=== PATIENT | female | born 1955 | race Caucasian/White ===

== ENCOUNTER 2017-02-21 18:04 | Inpatient (IN) | payer OTHER ==
[~2017-02-21] VITALS: Ht 160 cm; Wt 57.7 kg
--- NOTE | ~2017-02-21 | CON ---
[place], [place] REPORT OF CONSULTATION NAME: ELLYN FARMER UNIT #: [id number] ROOM: [place] [address] DOCTOR: MARILIN JOHN ED.D) BIRTHDATE: [birth year] DOS: 02/23/2017 HISTORY OF PRESENT ILLNESS: The patient is a 61-year-old female referred by the hospitalist for an evaluation of her obsessive compulsive disorder and depression. At the present time, this patient is a [facility] patient at [facility] and she is in the intensive care unit at the hospital. This patient states that she is a and has three children. She is on disability for multiple orthopedic issues. She does follow with Dr. Luther, in [place], [place]. Her medical history is pertinent for alcohol dependence and heroin dependence. Her medications include the regimen for withdrawal from alcohol and heroin. This patient states she drinks one fifth of vodka per day and also uses heroin and opiates. This patient also smokes 1 pack of cigarettes per day. She was awake, alert and oriented in all 3 spheres, but was extremely anxious and depressed. She denies any suicidal ideation or plan. She is going to follow up at [facility] for the intensive outpatient clinic. In the past, she has been to [facility] here in [place]. She states she came to the hospital to be detoxed and then follow up outpatient. She was obviously going through withdrawal during the interview even though she is taking multiple medications to ease the symptoms of her withdrawal. She does not appear to actually have obsessive compulsive disorder, but appears to be extremely anxious due to her withdrawal from alcohol and heroin. She had agreed to follow up outpatient once she is discharged. DIAGNOSES: 1. Alcohol dependence. 2. Alcohol withdrawal. 3. Opioid dependence. 4. Opioid withdrawal. RECOMMENDATIONS: 1. The patient should follow up at [facility] per her request once she is discharged. 2. The patient should follow up at long-term outpatient therapy for her substance abuse issues. 3. She should be reevaluated for depression once she is medically stable and detoxed. Thank you very much for this consult. [place], [place] REPORT OF CONSULTATION NAME: ELLYN FARMER UNIT #: [id number] ROOM: [place] [address] DOCTOR: MARILIN JOHN ED.D) BIRTHDATE: [birth year] MARILIN JOHN ED.D CM:CONSTR:REPORT OF CONSULTATION [id number] 02/24/17 0525 interface
[2017-02-21 18:07] VITALS: BP 171/96
[2017-02-21] MEDS ORDERED: CHLORDIAZEPOXID25 M1 PO (18:08)
[2017-02-21] MEDS ORDERED: ONDANSETRON HYDR4 MG PO (18:08)
[2017-02-21] MEDS ORDERED: Methadone Hydro10 MG PO (18:09)
[2017-02-21] MEDS ORDERED: OXYCODONE HCL10 M1 PO (18:12)
[2017-02-21 18:33] LABS: BASO # 0.1 10*3/uL (0.0-0.1); BASO % 0.3 % (0.0-1.0); EOS # 0.1 10*3/uL (0.0-0.4); EOS % 0.3 % (1.0-4.0); HEMATOCRIT 43.9 % (37.0-47.0); HEMOGLOBIN 14.8 g/dl (12.0-16.0); IG # 0.1 10*3/uL (0.0-0.1); LYMPH # 1.7 10*3/uL (1.3-4.4); LYMPH % 9.9 % (27.0-41.0); MEAN CELL VOLUME 98.4 fl (81.0-99.0); MEAN CORPUSCULAR HGB 33.2 pg (27.0-31.0); MEAN CORPUSCULAR HGB CONC 33.7 g/dl (33.0-37.0); MEAN PLATELET VOLUME 9.3 fl (9.6-12.3); MONO # 1.3 10*3/uL (0.1-1.0); MONO % 7.4 % (3.0-9.0); NEUT # 14.2 10*3/uL (2.3-7.9); NEUT % 81.8 % (47.0-73.0); PLATELET COUNT AUTOMATED 469 10*3/uL (130-400); RED BLOOD COUNT 4.46 10*6/uL (4.10-5.10); RED CELL DISTRI WIDTH 13.4 % (0-14.5); WHITE BLOOD COUNT 17.3 10*3/uL (4.8-10.8)
[2017-02-21 18:50] LABS: ALBUMIN 3.6 gm/dl (3.1-4.5); ALKALINE PHOSPHATASE 197 U/L (45-117); BILIRUBIN, TOTAL 0.4 mg/dl (0.2-1.0); BUN 4 mg/dl (7-24); CARBON DIOXIDE 28 mmol/L (21-32); CHLORIDE 102 mmol/L (98-107); EST GLOM FILT AFRICAN AMERICAN > 60 ml/min; GLUCOSE 139 mg/dL (65-99); POTASSIUM 3.7 mmol/L (3.5-5.1); SGOT/AST 22 IU/L (3-35); SGPT/ALT 32 U/L (12-78); SODIUM 140 mmol/L (136-145); TOTAL PROTEIN 8.2 gm/dL (6.4-8.2)
[2017-02-21 18:57] LABS: THYROID STIM HORMONE (HS) 0.033 uIU/ml (0.358-4.75); TROPONIN I < 0.015 ng/ml (<0.045)
[2017-02-21 19:45] VITALS: BP 145/105
[2017-02-21 19:59] VITALS: BP 136/71
[2017-02-21 20:02] LABS: BILIRUBIN NEGATIVE (NEGATIVE); BLOOD TRACE-INTACT (NEGATIVE); CLARITY CLEAR (CLEAR); COLOR YELLOW (YELLOW); GLUCOSE NEGATIVE (NEGATIVE); KETONE NEGATIVE (NEGATIVE); LEUKO ESTERASE NEGATIVE (NEGATIVE); NITRITE NEGATIVE (NEGATIVE); PH 5.5 (5.0-9.0); PROTEIN NEGATIVE (NEGATIVE); SPECIFIC GRAVITY <= 1.005 (1.005-1.030); UROBILINOGEN 0.2 E.U./dl (0.2-1.0)
[2017-02-21 20:10] VITALS: BP 137/81
[2017-02-21 20:13] LABS: URINE AMPHETAMINES < 1000 (1000ng/ml); URINE BARBITURATES > 200 (200ng/ml); URINE COCAINE < 300 (300ng/ml)
[2017-02-21 20:15] LABS: EPITHELIAL CELLS 0-2; URINE REFLEX COMMENT NO (NO); WBC 0-2 wbc/hpf (0-5)
[2017-02-21 21:45] LABS: CKMB 1.6 ng/ml (0.5-3.6); CPK 89 U/L (26-192)
[2017-02-21 21:56] LABS: TROPONIN I < 0.015 ng/ml (<0.045)
[2017-02-22] VITALS: BP 148/81
[2017-02-22 01:31] LABS: CKMB 0.9 ng/ml (0.5-3.6); CPK 71 U/L (26-192); TROPONIN I < 0.015 ng/ml (<0.045)
[2017-02-22 06:12] LABS: BASO % 0.3 % (0.0-1.0); EOS # 0.1 10*3/uL (0.0-0.4); EOS % 0.7 % (1.0-4.0); HEMATOCRIT 40.9 % (37.0-47.0); HEMOGLOBIN 13.5 g/dl (12.0-16.0); IG # 0.1 10*3/uL (0.0-0.1); LYMPH # 1.7 10*3/uL (1.3-4.4); LYMPH % 11.6 % (27.0-41.0); MEAN CELL VOLUME 99.3 fl (81.0-99.0); MEAN CORPUSCULAR HGB 32.8 pg (27.0-31.0); MEAN PLATELET VOLUME 9.5 fl (9.6-12.3); MONO # 1.1 10*3/uL (0.1-1.0); MONO % 7.5 % (3.0-9.0); NEUT # 11.9 10*3/uL (2.3-7.9); NEUT % 79.5 % (47.0-73.0); PLATELET COUNT AUTOMATED 380 10*3/uL (130-400); RED BLOOD COUNT 4.12 10*6/uL (4.10-5.10); RED CELL DISTRI WIDTH 13.4 % (0-14.5)
[2017-02-22 06:29] LABS: PROTHROMBIN TIME 10.3 SECONDS (9.0-12.4)
[2017-02-22 06:31] LABS: ALBUMIN 2.8 gm/dl (3.1-4.5); ALKALINE PHOSPHATASE 156 U/L (45-117); BILIRUBIN, TOTAL 0.5 mg/dl (0.2-1.0); BUN 4 mg/dl (7-24); CARBON DIOXIDE 30 mmol/L (21-32); CHLORIDE 106 mmol/L (98-107); CKMB 0.6 ng/ml (0.5-3.6); CPK 58 U/L (26-192); EST GLOM FILT AFRICAN AMERICAN > 60 ml/min; GLUCOSE 97 mg/dL (65-99); POTASSIUM 3.7 mmol/L (3.5-5.1); SGOT/AST 14 IU/L (3-35); SGPT/ALT 24 U/L (12-78); SODIUM 142 mmol/L (136-145); TOTAL PROTEIN 6.7 gm/dL (6.4-8.2)
[2017-02-22 06:34] LABS: TROPONIN I < 0.015 ng/ml (<0.045)
[2017-02-22 08:00] VITALS: BP 107/81
[2017-02-22 12:00] VITALS: BP 110/88
[2017-02-22 16:00] VITALS: BP 116/83
[2017-02-22 20:00] VITALS: BP 125/93
[2017-02-23] VITALS: BP 101/51
[2017-02-23 04:00] VITALS: BP 122/68
[2017-02-23 06:06] LABS: BASO % 0.1 % (0.0-1.0); HEMATOCRIT 37.7 % (37.0-47.0); HEMOGLOBIN 12.1 g/dl (12.0-16.0); IG # 0.1 10*3/uL (0.0-0.1); LYMPH # 0.9 10*3/uL (1.3-4.4); LYMPH % 8.3 % (27.0-41.0); MEAN CORPUSCULAR HGB CONC 32.1 g/dl (33.0-37.0); MEAN PLATELET VOLUME 9.6 fl (9.6-12.3); MONO # 0.6 10*3/uL (0.1-1.0); NEUT # 9.7 10*3/uL (2.3-7.9); NEUT % 85.9 % (47.0-73.0); PLATELET COUNT AUTOMATED 366 10*3/uL (130-400); RED BLOOD COUNT 3.67 10*6/uL (4.10-5.10); RED CELL DISTRI WIDTH 13.2 % (0-14.5); WHITE BLOOD COUNT 11.3 10*3/uL (4.8-10.8)
[2017-02-23 06:10] LABS: MEAN CELL VOLUME 102.7 fl (81.0-99.0)
[2017-02-23 06:17] LABS: BUN 9 mg/dl (7-24); CARBON DIOXIDE 28 mmol/L (21-32); CHLORIDE 110 mmol/L (98-107); EST GLOM FILT AFRICAN AMERICAN > 60 ml/min; GLUCOSE 225 mg/dL (65-99); POTASSIUM 3.8 mmol/L (3.5-5.1); SODIUM 142 mmol/L (136-145)
[2017-02-23 08:00] VITALS: BP 117/87
[2017-02-23 12:00] VITALS: BP 123/87
[2017-02-23 16:00] VITALS: BP 132/80
[2017-02-23 20:00] VITALS: BP 167/71
[2017-02-24] VITALS: BP 136/84
[2017-02-24 04:00] VITALS: BP 120/79
[2017-02-24 05:57] LABS: ALBUMIN 2.9 gm/dl (3.1-4.5); ALKALINE PHOSPHATASE 133 U/L (45-117); BILIRUBIN, TOTAL 0.1 mg/dl (0.2-1.0); BUN 6 mg/dl (7-24); CARBON DIOXIDE 27 mmol/L (21-32); CHLORIDE 113 mmol/L (98-107); EST GLOM FILT AFRICAN AMERICAN > 60 ml/min; GLUCOSE 168 mg/dL (65-99); SGOT/AST 9 IU/L (3-35); SGPT/ALT 21 U/L (12-78); SODIUM 146 mmol/L (136-145); TOTAL PROTEIN 6.6 gm/dL (6.4-8.2)
[2017-02-24 06:00] LABS: BASO % 0.2 % (0.0-1.0); HEMATOCRIT 37.9 % (37.0-47.0); HEMOGLOBIN 12.2 g/dl (12.0-16.0); IG # 0.1 10*3/uL (0.0-0.1); LYMPH # 1.3 10*3/uL (1.3-4.4); MEAN CELL VOLUME 102.7 fl (81.0-99.0); MEAN CORPUSCULAR HGB 33.1 pg (27.0-31.0); MEAN CORPUSCULAR HGB CONC 32.2 g/dl (33.0-37.0); MEAN PLATELET VOLUME 9.8 fl (9.6-12.3); MONO # 0.4 10*3/uL (0.1-1.0); MONO % 3.1 % (3.0-9.0); NEUT # 11.1 10*3/uL (2.3-7.9); NEUT % 86.2 % (47.0-73.0); PLATELET COUNT AUTOMATED 344 10*3/uL (130-400); RED BLOOD COUNT 3.69 10*6/uL (4.10-5.10); RED CELL DISTRI WIDTH 13.4 % (0-14.5); WHITE BLOOD COUNT 12.8 10*3/uL (4.8-10.8)
[2017-02-24 06:41] LABS: POTASSIUM 4.8 mmol/L (3.5-5.1)
[2017-02-24 08:00] VITALS: BP 115/79
[2017-02-24 12:00] VITALS: BP 132/75
[2017-02-24 16:00] VITALS: BP 123/85
[2017-02-24 20:00] VITALS: BP 141/92
[2017-02-25] VITALS: BP 139/79
[2017-02-25 04:00] VITALS: BP 107/70
[2017-02-25 05:31] LABS: BUN 11 mg/dl (7-24); CARBON DIOXIDE 27 mmol/L (21-32); CHLORIDE 112 mmol/L (98-107); EST GLOM FILT AFRICAN AMERICAN > 60 ml/min; GLUCOSE 162 mg/dL (65-99); POTASSIUM 3.9 mmol/L (3.5-5.1); SODIUM 146 mmol/L (136-145)
[2017-02-25 06:04] LABS: BASO % 0.2 % (0.0-1.0); EOS % 0.1 % (1.0-4.0); HEMATOCRIT 38.6 % (37.0-47.0); HEMOGLOBIN 12.6 g/dl (12.0-16.0); IG # 0.2 10*3/uL (0.0-0.1); LYMPH # 1.5 10*3/uL (1.3-4.4); LYMPH % 13.9 % (27.0-41.0); MEAN CELL VOLUME 101.3 fl (81.0-99.0); MEAN CORPUSCULAR HGB 33.1 pg (27.0-31.0); MEAN CORPUSCULAR HGB CONC 32.6 g/dl (33.0-37.0); MEAN PLATELET VOLUME 9.8 fl (9.6-12.3); MONO # 0.5 10*3/uL (0.1-1.0); NEUT # 8.3 10*3/uL (2.3-7.9); NEUT % 79.3 % (47.0-73.0); PLATELET COUNT AUTOMATED 358 10*3/uL (130-400); RED BLOOD COUNT 3.81 10*6/uL (4.10-5.10); RED CELL DISTRI WIDTH 13.3 % (0-14.5); WHITE BLOOD COUNT 10.5 10*3/uL (4.8-10.8)
[2017-02-25 08:00] VITALS: BP 126/72
[2017-02-25 12:00] VITALS: BP 155/65
[2017-02-25 16:00] VITALS: BP 125/68
[2017-02-25 20:00] VITALS: BP 128/81
[2017-02-26] VITALS: BP 142/82
[2017-02-26 06:50] LABS: BUN 10 mg/dl (7-24); CARBON DIOXIDE 26 mmol/L (21-32); CHLORIDE 109 mmol/L (98-107); EST GLOM FILT AFRICAN AMERICAN > 60 ml/min; GLUCOSE 154 mg/dL (65-99); POTASSIUM 3.9 mmol/L (3.5-5.1); SODIUM 145 mmol/L (136-145)
[2017-02-26 08:00] VITALS: BP 101/85
[2017-02-26] MEDS ORDERED: ATARAX,VISTARIL50 MG PO (11:16)
[2017-02-26] MEDS ORDERED: PREDNISONE10 MG PO (11:16)
[2017-02-26] MEDS ORDERED: LEVAQUIN500 M2 PO (11:16)
[2017-02-26] MEDS ORDERED: LOPERAMIDE HCL2 MG PO (11:19)
[2017-02-26] MEDS ORDERED: TESSALON PERLE100 MG PO (11:37)
[2017-02-26 12:00] VITALS: BP 110/75
== END 2017-02-26 15:30 | disposition home or self-care (01) | DRG 871 ==
LOC: ED 18:04 → ICCU 19:12 → EDHOLD 19:12 → ICCU 19:49 → 5E 02-25 14:11
PROVIDERS: Internal Medicine; Internal Medicine Hospice and Palliative Medicine; Nurse Practitioner Family; Student in an Organized Health Care Education/Training Program
DX: A41.9 Sepsis, unspecified organism (principal); J18.9 Pneumonia, unspecified organism; F10.231 Alcohol dependence with withdrawal delirium; E44.0 Moderate protein-calorie malnutrition; F11.23 Opioid dependence with withdrawal; F13.230 Sedative, hypnotic or anxiolytic dependence with withdrawal, uncomplicated; F17.210 Nicotine dependence, cigarettes, uncomplicated; Z96.642 Presence of left artificial hip joint; Z96.641 Presence of right artificial hip joint; D47.3 Essential (hemorrhagic) thrombocythemia; Z68.22 Body mass index [BMI] 22.0-22.9, adult; Z86.711 Personal history of pulmonary embolism; Z90.49 Acquired absence of other specified parts of digestive tract; Z90.710 Acquired absence of both cervix and uterus; Z79.899 Other long term (current) drug therapy